=== PATIENT | male | born 1995 | race Caucasian/White ===

== ENCOUNTER 2018-11-25 10:00 | Day surgery (SDC) | payer BC ==
[2018-11-22 10:20] VITALS: BMI 30.7
[~2018-11-25 10:00] MED LIST: DEXAMETHASONE SOD PHOSPHATE 10 MG/ML 1 ML VIAL IV ONE; HEPARIN SODIUM,PORCINE 5,000 UNIT/ML 1 ML VIAL SQ ONE; HYDROmorphone 0.5 MG/0.5 ML SYRINGE IVP PRN; LACTATED RINGERS 1,000 ML IV SCH; LIDOCAINE 1% 20 ML VIAL (10MG/ML) FOR IV START INTRADERMA PRN; MIDAZOLAM 2 MG/2 ML VIAL IV PRN; ONDANSETRON 4 MG/2 ML VIAL IVP ONE; ceFAZolin IN SWFI 2 GM/20 ML SYRINGE IVP ONE; fentaNYL (PF) 50 MCG/ML 2 ML AMP IV PRN
--- NOTE | 2018-11-25 10:58 | P.HPADDEND ---
H&P Addendum H&P Addendum Date: 11/25/18 Refer to H&P for details. 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 Risks of bleeding, infection, recurrence, hernia, possible need for hernia repair, fistula, bladder or bowel injury reviewed. He understands and wishes to proceed.
[2018-11-25] MEDS ORDERED: MIDAZOLAM 2 MG/2 ML VIAL ONE (11:33)
[2018-11-25] MEDS ORDERED: fentaNYL (PF) 50 MCG/ML 2 ML AMP ONE (11:33)
[2018-11-25] MEDS ORDERED: PROPOFOL 10 MG/ML 20 ML VIAL IV ONE (11:33)
[2018-11-25] MEDS ORDERED: LIDOCAINE 1% INJ 10MG/ML (20 ML MDV) ONE (11:33)
[2018-11-25] MEDS ORDERED: BUPIVACAINE (PF) 0.25% 30 ML VIAL SQ ONE (11:59)
[2018-11-25] MEDS ORDERED: HYDROcodone/APAP 5-325MG 1 EACH TAB PO PRN (12:30)
[2018-11-25] MEDS ORDERED: NALOXONE 0.4 MG/ML 1 ML VIAL IV PRN (12:30)
--- NOTE | 2018-11-25 12:35 | P.OP ---
Date of Procedure: 11/25/18 Procedure(s) Performed: PREOPERATIVE DIAGNOSIS: Recurrent urachal sinus POSTOPERATIVE DIAGNOSIS: Same PROCEDURE: Excision recurrent urachal sinus with umbilical hernia repair SURGEON: Antonio EBL: Minimal ANESTHESIA: General COMPLICATIONS: None OPERATIVE PROCEDURE: The patient was placed in the operating table in the supine position. The previous infraumbilical incision was re-incised sharply. The subcutaneous tissues were divided using electrocautery. Once we reached the level of the fascia the base of the umbilicus was bluntly dissected and divided from the fascia. This left a small defect at the level of the fascia which was closed using a single [id number] 0 Vicryl stitch. The umbilicus was then inverted. There was noted to be a small sinus opening at the very base of the umbilicus. This did not seem to be connected to any sizable cyst cavity. I then excised the base of the umbilicus using a scalpel. This defect at the base of the umbilicus was closed using interrupted 4-0 Vicryl sutures. The area was irrigated. No bleeding or drainage was seen. The base of the umbilicus was tacked down to the fascia using a 3-0 Vicryl stitch. The subcutaneous tissues were reapproximated using inverted 3-0 Vicryl sutures. The skin was closed using 4-0 Monocryl sutures. Skin glue and sterile dressings were then applied. DISPOSITION: Stable to recovery room
[2018-11-25 12:44] VITALS: TEMP 97.2
[2018-11-25] MEDS ORDERED: KETOROLAC 30 MG/ML 1 ML VIAL IVP ONE (13:05)
[2018-11-25] MEDS ORDERED: HYDROcodone/APAP 5-325MG 1 EACH TAB PO ONE (13:55)
[2018-11-25 14:13] VITALS: BP 121/70; PULSE 79; RESP 16
== END 2018-11-25 14:47 | disposition home or self-care (01) ==
LOC: OR 10:00
PROVIDERS: ATTEND Surgery
DX: Q64.4 Malformation of urachus (principal); K42.9 Umbilical hernia without obstruction or gangrene; Z98.890 Other specified postprocedural states
CPT/HCPCS: 88305; 51500; J2250; J1644; J1100; J2405; J2001; J3010; J1885; J2704; J0690

== ENCOUNTER → 2021-04-18 | Outpatient (CLI) | payer BC ==
--- NOTE | 2021-04-18 21:40 | CT ---
EXAMINATION TYPE: CT abdomen pelvis w con DATE OF EXAM: 04/18/2021 COMPARISON: Pain HISTORY: abdominal/umbilical pain, hx of hernia CT DLP: 1546 mGycm Automated exposure control for dose reduction was used. CONTRAST: CT scan of the abdomen pelvis is performed with IV Contrast, patient injected with 100 mL of Isovue 3 00. FINDINGS- LUNG BASES- No significant abnormality is appreciated. LIVER/GB- No gross abnormality is appreciated. PANCREAS- No gross abnormality is seen. SPLEEN- No gross abnormality is seen. ADRENALS- No gross abnormality is seen. KIDNEYS/BLADDER- no hydronephrosis nephrolithiasis or renal mass. BOWEL- no bowel dilatation. Normal appendix. LYMPH NODES- No greater than 1cm abdominal or pelvic lymph nodes areappreciated. OSSEOUS STRUCTURES- No significant abnormality is seen. OTHER- aorta of normal caliber. No evidence of abdominal wall hernia. Bladder has a normal appearanc e. Linear density extending from the anterior margin of the bladder could be vascular rather than rep resenting a tiny urachal tract with no evidence sizable of abnormal attenuation IMPRESSION- 1. No definite acute process. Questionable tiny linear attenuation extending off the anterior margin of the bladder could represent minimal residual urachal tract.
== END | disposition home or self-care (01) ==
LOC: RADCTMAIN 16:11
PROVIDERS: ATTEND Surgery
DX: Q64.4 Malformation of urachus (principal)
CPT/HCPCS: 74177; Q9967